=== PATIENT | female | born 1935 | race Native Hawaiian/Other Pacific Islander ===

== ENCOUNTER 2016-04-08 12:13 | Outpatient (CLI) | payer OTHER ==
[2016-04-08] MEDS ORDERED: CARDIZEM60 MG PO (12:37)
[2016-04-08] MEDS ORDERED: LEVO0.0723 PO (12:38)
[2016-04-08] MEDS ORDERED: METO25TA2 PO (12:38)
[2016-04-08] MEDS ORDERED: TRIA37.541 PO (12:38)
[2016-04-08] MEDS ORDERED: XARELTO20 MG OR (16:22)
== END 2016-04-08 12:17 | disposition short-term general hospital (02) ==
LOC: AMB 12:13
DX: R55 Syncope and collapse (principal); I95.89 Other hypotension
CPT/HCPCS: A0425; A0427

== ENCOUNTER 2016-04-08 12:21 | Inpatient (IN) | payer OTHER ==
[~2016-04-08] VITALS: Ht 160 cm; Wt 61.4 kg
[2016-04-08 12:19] VITALS: BP 122/69
[2016-04-08] MEDS ORDERED: CARDIZEM60 MG PO (12:37)
[2016-04-08] MEDS ORDERED: TRIA37.541 PO (12:38)
[2016-04-08] MEDS ORDERED: LEVO0.0723 PO (12:38)
[2016-04-08] MEDS ORDERED: METO25TA2 PO (12:38)
[2016-04-08 14:50] LABS: PLATELET COUNT 217 K/uL (152-353)
[2016-04-08 15:05] LABS: POTASSIUM 3.6 mmol/L (3.6-5.2); SODIUM 120 mmol/L (136-145)
[2016-04-08 16:21] VITALS: BP 109/79
[2016-04-08] MEDS ORDERED: XARELTO20 MG OR (16:22)
--- NOTE | 2016-04-08 17:00 | NUR ---
PT HERE VIA WC FROM ER TO ROOM 1113. PT ALERT AND ORIENTED AT THIS TIME. SLIGHT WEAKNESS NOTED WHEN STANDING. PT ALERT AND ORIENTED AT THIS TIME. DAUGHTER AT BS. ORIENTED PT AND FAMILY TO ROOM AND CONTROLS. IV INTACT TO R AC.
[2016-04-08 17:40] VITALS: BP 116/68; TEMP 98.5; Ht 160 cm; Wt 61.4 kg
[2016-04-08 20:13] VITALS: BP 127/70; TEMP 98.2
[2016-04-09 00:43] VITALS: BP 96/65; TEMP 98.1
[2016-04-09 04:00] VITALS: BP 112/65; TEMP 98.2
[2016-04-09 05:18] LABS: PLATELET COUNT 145 K/uL (152-353)
--- NOTE | 2016-04-09 07:05 | NUR ---
DR. MAYO AT BEDSIDE DRAWING PT'S LABS.
[2016-04-09 07:44] LABS: POTASSIUM 3.7 mmol/L (3.6-5.2); SODIUM 128 mmol/L (136-145)
[2016-04-09 08:00] VITALS: BP 120/75; TEMP 98.1
[2016-04-09 12:00] VITALS: BP 98/58; TEMP 98.5
--- NOTE | 2016-04-09 14:30 | NUR ---
ORTHOSTATICS REPORTED TO DR GASCA LAYING 103/67 86 SITTING 100/58 88 STANDING 90/66 108
[2016-04-09 16:00] VITALS: BP 93/58; TEMP 98.5
[2016-04-09 20:13] VITALS: BP 93/67; TEMP 98.3
[2016-04-10 00:26] VITALS: BP 127/74; TEMP 98.2
[2016-04-10 05:42] VITALS: BP 133/70; TEMP 98.4
[2016-04-10 06:19] LABS: PLATELET COUNT 204 K/uL (152-353)
[2016-04-10 06:34] LABS: POTASSIUM 3.1 mmol/L (3.6-5.2)
[2016-04-10 08:00] VITALS: BP 96/64; TEMP 98.1
[2016-04-10 11:35] VITALS: BP 116/73; TEMP 98.2
--- NOTE | 2016-04-10 14:00 | NUR ---
DC INSTRUCTIONS GIVEN TO PT AND DAUGHTER. PT V/U. INSTRUCTED TO MAKE FOLLOW UP APPT IN 5 DAYS WITH PCP. PT V/U. IC DC'D WITH CANNULA INTACT AND SITE CARE PROVIDED. NAD NOTED. PT LEFT VIA WC WITH TECH AT THIS TIME.
[2016-04-10 16:00] VITALS: BP 100/69; TEMP 97.8
--- NOTE | 2016-04-10 16:12 | NUR ---
PT C/O INDIGESTION. SEE MAR. MEDS GIVEN
--- NOTE | 2016-04-10 16:12 | NUR ---
PT C/O "JITTERNESS" STATES SHE THINKS IT MAY BE BREATHING TREATMENTS. ALYCE SALINAS IN TO TALK WITH PATIENT. NEW ORDERS FOR BREATHING TX AT THIS TIME. WILL MONITOR.
[2016-04-10 20:11] VITALS: BP 148/70; TEMP 98.5
[2016-04-11] VITALS (7 sets, daily range): BP systolic 84–124; BP diastolic 54–78; TEMP 97.6–98.8
[2016-04-11 06:16] LABS: PLATELET COUNT 223 K/uL (152-353)
[2016-04-11 06:38] LABS: POTASSIUM 4.3 mmol/L (3.6-5.2); SODIUM 127 mmol/L (136-145)
[2016-04-12 04:00] VITALS: BP 139/80; TEMP 97.9
[2016-04-12 06:09] LABS: PLATELET COUNT 220 K/uL (152-353)
[2016-04-12 06:27] LABS: POTASSIUM 4.2 mmol/L (3.6-5.2); SODIUM 129 mmol/L (136-145)
[2016-04-12 07:47] VITALS: BP 110/77; TEMP 97.6
[2016-04-12 11:55] VITALS: BP 113/75; TEMP 97.7
[2016-04-12 16:00] VITALS: BP 103/71; TEMP 98
[2016-04-12 20:00] VITALS: BP 133/70; TEMP 100.5
[2016-04-13] VITALS: BP 132/79; TEMP 99
[2016-04-13 04:00] VITALS: BP 123/81; TEMP 98.2
[2016-04-13 05:46] LABS: PLATELET COUNT 236 K/uL (152-353)
[2016-04-13 06:00] LABS: POTASSIUM 4.2 mmol/L (3.6-5.2); SODIUM 129 mmol/L (136-145)
[2016-04-13 08:00] VITALS: BP 104/81; TEMP 98.2
[2016-04-13 12:00] VITALS: BP 129/82; TEMP 98.2
--- NOTE | 2016-04-13 15:05 | NUR ---
DC INSTRUCTIONS GIVEN TO PT AND FAMILY. V/U. IV DC'D WITH CANNULA INTACT AND SITE CARE PROVIDED. RX GIVEN TO DAUGHTER. NAD NOTED. PT LEFT VIA WC AT THIS TIME.
== END 2016-04-13 15:07 | disposition home or self-care (01) | DRG 178 ==
LOC: ED 12:21 → MED/SURG 16:27
PROVIDERS: Emergency Medicine; Internal Medicine; ADMIT Specialist
DX: J15.0 Pneumonia due to Klebsiella pneumoniae (principal); E87.1 Hypo-osmolality and hyponatremia; R55 Syncope and collapse; M15.8 Other polyosteoarthritis
CPT/HCPCS: 36415; 36600; 80048; 80053; 81000; 82550; 82553; 82805; 83605; 83735; 84100; 84484; 85027; 85379; 87070; 87077; 87186; 87205; 87804; 93005; 94640; 94664; 94760; 96360; 96365; 96366; 96367; 96375; 99220; 99284; G0378; J1644; J1956; J2543; J3475; J3490

== ENCOUNTER 2016-10-12 07:52 | Outpatient (CLI) | payer OTHER ==
[~2016-10-12] VITALS: Ht 160 cm; Wt 57.2 kg
[~2016-10-12 07:52] MED LIST: CARDIZEM60 MG PO; LEVO0.0723 PO; METO25TA2 PO; TRIA37.541 PO; XARELTO20 MG OR
[2016-10-12 11:58] VITALS: BP 142/64; TEMP 98.4
== END 2016-10-12 11:58 | disposition home or self-care (01) ==
LOC: INF 07:52
DX: M81.0 Age-related osteoporosis without current pathological fracture (principal)
CPT/HCPCS: 36415; 82310; 96372; J0897

== ENCOUNTER 2016-11-10 07:52 | Outpatient (CLI) | payer OTHER | END 2016-11-10 09:00 | disposition home or self-care (01) | LOC: US 07:52 | DX: R94.5 Abnormal results of liver function studies (principal) ==

== ENCOUNTER 2017-05-11 07:54 | Outpatient (CLI) | payer OTHER ==
[~2017-05-11] VITALS: Ht 160 cm; Wt 57.2 kg
[2017-05-11 12:30] VITALS: BP 154/85; TEMP 97.7
== END 2017-05-11 12:30 | disposition home or self-care (01) ==
LOC: INF 07:54
DX: M81.0 Age-related osteoporosis without current pathological fracture (principal)
CPT/HCPCS: 36415; 82310; 96372; J0897

== ENCOUNTER 2017-11-29 12:26 | Outpatient (CLI) | payer OTHER ==
[~2017-11-29] VITALS: Ht 154.9 cm; Wt 54.4 kg
[2017-11-29 13:52] VITALS: BP 138/65; TEMP 97.5
== END 2017-11-29 14:09 | disposition home or self-care (01) ==
LOC: INF 12:26
DX: M81.0 Age-related osteoporosis without current pathological fracture (principal)
CPT/HCPCS: 36415; 82310; 96372; J0897

== ENCOUNTER 2018-05-16 08:02 | Outpatient (CLI) | payer OTHER ==
[~2018-05-16] VITALS: Ht 162.6 cm; Wt 54.4 kg
[2018-05-16 10:47] VITALS: BP 100/65; TEMP 97.7
== END 2018-05-16 10:59 | disposition home or self-care (01) ==
LOC: INF 08:02
DX: M81.0 Age-related osteoporosis without current pathological fracture (principal)
CPT/HCPCS: 82310; 96372; J0897

== ENCOUNTER 2018-09-06 07:28 | Outpatient (CLI) | payer OTHER ==
[2018-09-06 08:05] LABS: PLATELET COUNT 118 K/uL (152-353)
[2018-09-06 08:36] LABS: POTASSIUM 4.4 mmol/L (3.6-5.2)
== END 2018-09-06 23:42 | disposition home or self-care (01) ==
LOC: LABW 07:28
PROVIDERS: Internal Medicine Gastroenterology
DX: R94.5 Abnormal results of liver function studies (principal); K76.0 Fatty (change of) liver, not elsewhere classified
CPT/HCPCS: 36415; 80053; 80074; 82103; 82390; 82525; 82728; 83516; 83540; 83550; 84466; 85027; 85610; 86038

== ENCOUNTER 2018-09-20 07:30 | Outpatient (CLI) | payer OTHER | END 2018-09-20 23:04 | disposition home or self-care (01) | LOC: US 07:30 | DX: R94.5 Abnormal results of liver function studies (principal) ==

== ENCOUNTER 2018-09-25 14:47 | Outpatient (CLI) | payer OTHER ==
[2018-09-25 15:29] LABS: PLATELET COUNT 114 K/uL (152-353)
== END 2018-09-25 19:48 | disposition home or self-care (01) ==
LOC: LABW 14:47
PROVIDERS: Internal Medicine Gastroenterology
DX: R94.5 Abnormal results of liver function studies (principal)
CPT/HCPCS: 36415; 80076; 82784; 85027

== ENCOUNTER 2018-11-14 09:36 | Outpatient (CLI) | payer OTHER ==
[2018-11-14 09:54] LABS: PLATELET COUNT 144 K/uL (152-353)
== END 2018-11-14 19:30 | disposition home or self-care (01) ==
LOC: LABW 09:36
PROVIDERS: Internal Medicine Gastroenterology
DX: K75.4 Autoimmune hepatitis (principal); M81.0 Age-related osteoporosis without current pathological fracture
CPT/HCPCS: 36415; 80076; 82310; 85027

== ENCOUNTER 2018-11-15 08:34 | Outpatient (CLI) | payer OTHER ==
[~2018-11-15] VITALS: Ht 160 cm; Wt 55.8 kg
[2018-11-15 08:47] VITALS: BP 139/69; TEMP 98.5
== END 2018-11-15 09:28 | disposition home or self-care (01) ==
LOC: INF 08:34
DX: M81.0 Age-related osteoporosis without current pathological fracture (principal)
CPT/HCPCS: 96372; J0897

== ENCOUNTER 2019-02-15 10:06 | Outpatient (CLI) | payer OTHER | END 2019-02-15 19:09 | disposition home or self-care (01) | LOC: LABW 10:06 | DX: K75.4 Autoimmune hepatitis (principal) | CPT/HCPCS: 36415; 80076 ==

== ENCOUNTER 2019-05-01 08:45 | Outpatient (CLI) | payer OTHER | END 2019-05-01 20:20 | disposition home or self-care (01) | LOC: CT 08:45 | DX: R19.7 Diarrhea, unspecified (principal); R10.84 Generalized abdominal pain; R14.0 Abdominal distension (gaseous) | CPT/HCPCS: 36415; 82272; 82565; 83630; 84520; 87015; 87045; 87324; 87328; 87329; 87449; 87899; Q9963 ==

== ENCOUNTER 2019-05-31 11:19 | Outpatient (CLI) | payer OTHER | END 2019-05-31 19:11 | disposition home or self-care (01) | LOC: LABW 11:19 | DX: M81.0 Age-related osteoporosis without current pathological fracture (principal) | CPT/HCPCS: 36415; 82310 ==

== ENCOUNTER 2019-06-18 08:52 | Outpatient (CLI) | payer OTHER ==
[~2019-06-18] VITALS: Ht 160 cm; Wt 55.8 kg
[2019-06-18 09:00] VITALS: BP 118/72; TEMP 98
== END 2019-06-18 19:35 | disposition home or self-care (01) ==
LOC: INF 08:52
DX: M81.0 Age-related osteoporosis without current pathological fracture (principal)
CPT/HCPCS: 36415; 82310; 96372; J0897